=== PATIENT | male | born 1990 | race African-American/Black ===

== ENCOUNTER 2019-05-01 10:03 | Emergency (ER) | payer SELFPAY ==
--- NOTE | 2019-05-01 11:19 | ER Document Report ---
HPI - HPI Time Seen by Provider: 05/01/19 10:57 Pain Level: 2 Context: Patient is a 29-year-old male presents to emergency department with a chief complaint of left upper arm pain and swelling. Patient reports last Monday night he noticed he was having a lot of itching to the left lower arm. Patient states that earlier that day he was at work and was possibly exposed to poison stephanie. Patient reports he woke up morning and noticed a rash that was weeping a clear fluid. Patient states he has had redness and swelling to his left upper and lower arm. Patient reports the redness and swelling is not necessarily getting worse but not getting better. Patient reports extreme itching and burning. Patient denies fever. Patient denies history of diabetes. Patient reports that the weeping has subsided. Patient reports he has used rubbing alcohol over the open wounds. Patient denies numbness or tingling to the left hand. Past Medical History - General Information source: Patient - Social History Smoking Status: Current Every Day Smoker Family History: None Patient has suicidal ideation: No Patient has homicidal ideation: No Past Surgical History: Reports: Hx Oral Surgery, Hx Orthopedic Surgery Vertical Provider Document - CONSTITUTIONAL Agree With Documented VS: Yes Exam Limitations: No Limitations General Appearance: No Apparent Distress - HEENT HEENT: Atraumatic, Normocephalic, PERRLA - RESPIRATORY Respiratory: Breath Sounds Normal, No Respiratory Distress - CARDIOVASCULAR Cardiovascular: Regular Rate, Regular Rhythm - MUSCULOSKELETAL/EXTREMETIES Notes: Significant edema and erythema noted to the left upper extremity. 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 Patient has a strong radial and radial pulse with palpation. Course - Re-evaluation Re-evalutation: 05/01/19 11:56 Dr. Hairston at bedside for consult. Patient denies IV drug use. Significant swelling to left upper extremity with erythema - consistent with cellulitis. MD recommends ultrasound to rule blood clot and abscess. Patient updated. Orders placed. Patient upgraded to FAUSTINO 3. - Vital Signs Vital signs: Temp Pulse Resp BP Pulse Ox 98.0 F 79 18 156/98 H 100 05/01/19 10:10 05/01/19 10:10 05/01/19 10:10 05/01/19 10:10 05/01/19 10:10 - Laboratory Result Diagrams: 05/01/19 11:50 05/01/19 11:50
[2019-05-01] MEDS ORDERED: KETOROLAC TROMETHAMINE INJ/PF 30 MG/1 ML SDV IV ONE (11:55)
[2019-05-01] MEDS ORDERED: VANCOMYCIN HCL INJ 1000 MG VIAL IV ONE (11:55)
[2019-05-01 12:14] LABS: ABSOLUTE BASOPHILS # (AUTO) 0.1 10^3/uL (0.0-0.2); ABSOLUTE EOSINOPHILS # (AUTO) 0.7 10^3/uL (0.0-0.6); ABSOLUTE LYMPHOCYTES (AUTO) 1.8 10^3/uL (0.5-4.7); ABSOLUTE MONOCYTES (AUTO) 0.7 10^3/uL (0.1-1.4); ABSOLUTE NEUT (AUTO) 4.9 10^3/uL (1.7-8.2); BASOPHILS % (AUTO) 0.8 % (0-2); EOSINOPHILS % (AUTO) 8.1 % (0-6); HEMATOCRIT 46.5 % (37.9-51.0); HEMOGLOBIN 15.5 g/dL (13.5-17.0); LYMPHOCYTES % (AUTO) 21.9 % (13-45); MEAN CORPUSCULAR HEMOGLOBIN 30.1 pg (27.0-33.4); MEAN CORPUSCULAR HGB CONC 33.4 g/dL (32.0-36.0); MEAN CORPUSCULAR VOLUME 90 fl (80-97); MONOCYTES % (AUTO) 8.2 % (3-13); PLATELET COUNT 253 10^3/uL (150-450); RED BLOOD COUNT 5.16 10^6/uL (4.35-5.55); RED CELL DISTRIBUTION WIDTH 13.7 % (11.5-14.0); TOTAL CELLS COUNTED % (AUTO) 100 %; WHITE BLOOD COUNT 8.1 10^3/uL (4.0-10.5)
[2019-05-01 12:27] LABS: ANION GAP 8 (5-19); BLOOD UREA NITROGEN 13 mg/dL (7-20); CALCIUM 9.9 mg/dL (8.4-10.2); CARBON DIOXIDE 28 mmol/L (22-30); CHLORIDE 104 mmol/L (98-107); GLUCOSE 89 mg/dL (75-110); POTASSIUM 4.2 mmol/L (3.6-5.0)
--- NOTE | 2019-05-01 13:11 | RADIOLOGY REPORT (SQ) ---
EXAM DESCRIPTION: U/S EXTREMITY NONVASCULAR LTD COMPLETED DATE/TIME: 05/01/2019 12:52 pm REASON FOR STUDY: left upper arm redness and swelling COMPARISON: None. TECHNIQUE: Dynamic and static grayscale images acquired of the localized site of clinical concern an d recorded on PACS. Additional selected color Doppler and spectral images recorded. SITE OF CONCERN: Left upper arm LIMITATIONS: None. FINDINGS: SKIN AND SUBCUTANEOUS TISSUES: Subcutaneous edema. No focal fluid collections. DEEP SOFT TISSUES/MUSCLES: No masses. No fluid collections. No edema. VASCULAR: No increased or decreased vascularity. No occlusions. OTHER: No other significant finding. IMPRESSION: Subcutaneous edema. No focal fluid collections. TECHNICAL DOCUMENTATION: JOB ID: [id number] -[employer]- [employer]- All Rights Reserved Reading location - IP/workstation name: [email or web address]
[2019-05-01] MEDS ORDERED: PREDNISONE 20 MG TABLET PO ONE (14:09)
[2019-05-01] MEDS ORDERED: CLINDAMYCIN 300 MG/D5W RTU 300 MG/50 ML RTUPB IV ONE (14:09)
--- NOTE | 2019-05-01 14:10 | ER Document Report ---
ED Medical Screen (RME) - General Chief Complaint: Rash Stated Complaint: SWOLLEN LEFT ARM Time Seen by Provider: 05/01/19 10:57 Notes: Patient is a 29-year-old male presents to emergency department with a chief complaint of left upper arm pain and swelling. Patient reports last Monday night he noticed he was having a lot of itching to the left lower arm. Patient states that earlier that day he was at work and was possibly exposed to poison stephanie. Patient reports he woke up morning and noticed a rash that was weeping a clear fluid. Patient states he has had redness and swelling to his left upper and lower arm. Patient reports the redness and swelling is not necessarily getting worse but not getting better. Patient reports extreme itching and burning. Patient denies fever. Patient denies history of diabetes. Patient reports that the weeping has subsided. Patient reports he has used rubbing alcohol over the open wounds. Patient denies numbness or tingling to the left hand. - Related Data Allergies/Adverse Reactions: Penicillins Allergy (Verified 05/01/19 10:10) Past Medical History Past Surgical History: Reports: Hx Oral Surgery, Hx Orthopedic Surgery Physical Exam - Vital signs Vitals: Temp Pulse Resp BP Pulse Ox 98.0 F 79 18 156/98 H 100 05/01/19 10:10 05/01/19 10:10 05/01/19 10:10 05/01/19 10:10 05/01/19 10:10 - Extremities Notes: Significant edema and erythema noted to the left upper extremity. 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 Patient has a strong radial and radial pulse with palpation. Course - Re-evaluation Re-evalutation: 05/01/19 14:10 Dr. Hairston at bedside for consult. Patient denies IV drug use. Significant swelling to left upper extremity with erythema - consistent with cellulitis. MD recommends ultrasound to rule blood clot and abscess. Patient updated. Orders placed. Patient upgraded to FAUSTINO 3. - Vital Signs Vital signs: Temp Pulse Resp BP Pulse Ox 98.0 F 79 18 156/98 H 100 05/01/19 10:10 05/01/19 10:10 05/01/19 10:10 05/01/19 10:10 05/01/19 10:10 - Laboratory Result Diagrams: 05/01/19 11:50 05/01/19 11:50 Laboratory results interpreted by me: 05/01/19 11:50 Eos % (Auto) 8.1 H Absolute Eos (auto) 0.7 H
[2019-05-01] MEDS ORDERED: DIPHENHYDRAMINE HCL 25 MG CAPSULE PO ONE (14:17)
--- NOTE | 2019-05-01 15:17 | ER Document Report ---
ED General - General Chief Complaint: Rash Stated Complaint: SWOLLEN LEFT ARM Time Seen by Provider: 05/01/19 10:57 - Related Data Allergies/Adverse Reactions: Penicillins Allergy (Verified 05/01/19 10:10) Past Medical History - Social History Smoking Status: Current Every Day Smoker Family History: None Patient has suicidal ideation: No Patient has homicidal ideation: No - Medical History Medical History: - Tetanus is up-to-date Notes: Tetanus up-to-date Past Surgical History: Reports: Hx Oral Surgery, Hx Orthopedic Surgery Review of Systems - Review of Systems Notes: All systems were reviewed and acutely negative except as in HPI Physical Exam - Vital signs Vitals: Temp Pulse Resp BP Pulse Ox 98.0 F 79 18 156/98 H 100 05/01/19 10:10 05/01/19 10:10 05/01/19 10:10 05/01/19 10:10 05/01/19 10:10 - Notes Notes: Patient presents emergency department complaining of a swollen left arm for the past week. Is also been associated with a rash. He said initially the rash looked like poison marizol with vesicular lesions in clumps and was somewhat pleuritic in nature he has been scratching it. Some generalized redness and swelling. Minimally painful. He denies any numbness or weakness in his arm. No trauma to the area that is aware of no chest pain or shortness of breath fevers night sweats denies any history of illegal drug abuse Past medical history is unremarkable. He is on no medications his tetanus is up-to-date he denies drug abuse Review of systems systems were reviewed and acutely negative as in HPI PHYSICAL EXAMINATION: GENERAL: Well-appearing, well-nourished and in no acute distress. HEAD: Atraumatic, normocephalic. EYES: Pupils equal round and reactive to light, extraocular movements intact, sclera anicteric, conjunctiva are normal. ENT: nares patent, oropharynx clear without exudates. Moist mucous membranes. NECK: Normal range of motion, supple without lymphadenopathy LUNGS: Breath sounds clear to auscultation bilaterally and equal. No wheezes rales or rhonchi. HEART: Regular rate and rhythm without murmurs ABDOMEN: Soft, nontender, normoactive bowel sounds. No guarding, no rebound. No masses appreciated. EXTREMITIES: Lower extremities right upper extremity nontender left upper extremity is no tenderness or palpable masses in the area of the brachial artery. He has area of redness in the volar portion of the forearm extending from the antecubital fossa down to about the wrist and extending partially to the dorsum but is not completely circumferential. The compartments are soft. Warm to the touch. There are some few excoriated lesions and 1-2 areas where to be some vesicular lesions good pulses neurovascular status to his hand is intact and there is no axillary nodes NEUROLOGICAL: No focal neurological deficits. Moves all extremities spontaneously and on command. PSYCH: Normal mood, normal affect. SKIN: Warm, Dry, normal turgor, no rashes or lesions noted. Course - Re-evaluation Re-evalutation: 05/01/19 21:26 ED patient is remained stable he was given a dose of vancomycin and prednisone. the area of redness was marked Medical decision making patient presents with swollen left arm of unclear etiology. Does appear to be several small areas this with a contact dermatitis but he has no other rashes on his body possibility that he had a localized contact dermatitis is become secondarily infected. He looks well and at this point I think he be discharged home ice and splint we will recheck in 24 hours with prednisone in case this is a contact dermatitis as well as clindamycin Procedure long-arm posterior splint was applied by nursing staff to provide me with good neurovascular status - Vital Signs Vital signs: Temp Pulse Resp BP Pulse Ox 98.3 F 74 18 160/89 H 96 05/01/19 17:02 05/01/19 17:02 05/01/19 17:02 05/01/19 17:02 05/01/19 17:02 - Laboratory Result Diagrams: 05/01/19 11:50 05/01/19 11:50 Laboratory results interpreted by me: 05/01/19 11:50 Eos % (Auto) 8.1 H Absolute Eos (auto) 0.7 H - Diagnostic Test Radiology reviewed: Reports reviewed Radiology results interpreted by me: 05/01/19 15:15 Venous Doppler was negative per tech 05/01/19 21:26 Ultrasound was negative Discharge - Discharge Clinical Impression: Cellulitis of arm, left, Elevated blood pressure reading Condition: Stable Disposition: HOME, SELF-CARE Instructions: Cellulitis ([facility]), Poison Marizol ([facility]) Additional Instructions: Return to the ED in 24 hours for recheck, leave the splint on, take 2 Benadryl 4 times a day for itch Prescriptions: Clindamycin HCl 150 mg PO ASDIR PRN #30 capsule PRN Reason: Prednisone [Deltasone 20 mg Tablet] 20 mg PO DAILY #30 tablet Forms: Elevated Blood Pressure, Return to Work
--- NOTE | 2019-05-01 16:00 | XCELERA REPORT ---
[address] [address] Upper Extremity Venous Evaluation Name: XIOMY SOLER Age: 29 yrs Gender: Male : 1990 Patient Status: Emergency Patient Location: ER Study Date: 05/01/2019 01:45 PM Procedure: Unilateral duplex scan of the left upper extremity veins was performed, including responses to compression and other maneuvers. Reason For Study: r/o clot,+ redness and swelling left upper extrem Ordering Physician: MARIE SOSA Performed By: Radha Hardin Left Sided Venous Evaluation Normal vessel filling wall to wall, compression and augmentation as well as Colour flow down to the forearm veins. Interpretation Summary No duplex evidence of DVT or obstruction in the left upper extremity. : MARIE SOSA > Melvin Singleton
[2019-05-01 17:13] VITALS: BP 160/89
== END 2019-05-01 17:15 | disposition home or self-care (01) ==
LOC: ER 10:03
DX: L03.114 Cellulitis of left upper limb (principal); R03.0 Elevated blood-pressure reading, without diagnosis of hypertension; F17.200 Nicotine dependence, unspecified, uncomplicated; Z88.0 Allergy status to penicillin
CPT/HCPCS: 36415; 87040; 85025; 80048; 93971 ×2; 76882; 29105; J1885; J7512; J3370; 96374; 96375; 99284

== ENCOUNTER 2019-05-02 08:21 | Emergency (ER) | payer SELFPAY ==
[2019-05-02] MEDS ORDERED: CEPHALEXIN 500 MG CAPSULE PO ONE (09:46)
[2019-05-02] MEDS ORDERED: SULFAMETHOXAZOLE/TRIMETHOPRIM 800-160 MG TABLET PO ONE (09:46)
[2019-05-02] MEDS ORDERED: CLINDAMYCIN HCL 150 MG CAPSULE PO ONE (09:47)
--- NOTE | 2019-05-02 09:53 | ER Document Report ---
HPI - HPI Patient complains to provider of: Wound recheck Time Seen by Provider: 05/02/19 09:34 Pain Level: 0 Context: 29-year-old male presents the emergency department for a recheck of a rash on his left upper extremity. Patient was seen here yesterday and diagnosed with double poison stephanie and cellulitis. Area was marked and there is market improvement based on history and the area of the rash. Patient was placed in a splint to immobilize it and protect the arm. Patient denies any itching, worsening swelling, fevers or chills, systemic symptoms, no other complaints - CONSTITUTIONAL Constitutional: DENIES: Fever, Chills Past Medical History - Social History Smoking Status: Current Every Day Smoker Chew tobacco use (# tins/day): No Frequency of alcohol use: Social Drug Abuse: None Family History: None Patient has suicidal ideation: No Patient has homicidal ideation: No Past Surgical History: Reports: Hx Oral Surgery, Hx Orthopedic Surgery Vertical Provider Document - CONSTITUTIONAL Notes: PHYSICAL EXAMINATION: Reviewed vital signs and charting by RN GENERAL: Alert, interacts well. No acute distress. HEAD: Normocephalic, atraumatic. EYES: Pupils equal and round. Extraocular movements intact. ENT: Oral mucosa moist, tongue midline. NECK: Full range of motion. Trachea midline. EXTREMITIES: Moves all 4 extremities spontaneously. Mild edema of the distal left upper extremity dorsal aspect, No cyanosis. PSYCH: Normal affect, normal mood. SKIN: Warm, dry, normal turgor. Erythema consistent with visit yesterday that has receded from the skin markings, no vesicles, skin is dry and scaling - INFECTION CONTROL TRAVEL OUTSIDE OF THE [place] IN LAST 30 DAYS: No Course - Re-evaluation Re-evalutation: 05/02/19 09:52 She appears for recheck. He has not gotten his prescriptions filled but is going this morning. The wound appears to be improving. He will receive a dose of clindamycin here in the emergency department. Patient was given strict return precautions. He is stable for discharge. - Vital Signs Vital signs: Temp Pulse Resp BP Pulse Ox 98.1 F 82 18 173/98 H 98 05/02/19 08:24 05/02/19 08:24 05/02/19 08:24 05/02/19 08:24 05/02/19 08:24 Discharge - Discharge Clinical Impression: Rash and nonspecific skin eruption Cellulitis Qualifiers: Site of cellulitis: extremity Site of cellulitis of extremity: upper extremity Laterality: left Qualified Code(s): L03.114 - Cellulitis of left upper limb Condition: Good Disposition: HOME, SELF-CARE Additional Instructions: You were seen for recheck of the rash on your arm. Based on the skin markings in your description it sounds like it is improved and you are moving in the right direction. Please get the prescription for clindamycin and prednisone filled and take them as directed. Please return to the emergency department if you have any of the side effects that we discussed to include systemic fevers, flulike symptoms, worsening swelling, pain out of proportion to swelling of the area, or any other concerning symptoms.
[2019-05-02 10:07] VITALS: BP 158/98
== END 2019-05-02 10:09 | disposition home or self-care (01) ==
LOC: ER 08:21
DX: L23.7 Allergic contact dermatitis due to plants, except food (principal); L03.114 Cellulitis of left upper limb; F17.200 Nicotine dependence, unspecified, uncomplicated
CPT/HCPCS: 99282